=== PATIENT | female | born 1955 ===

== ENCOUNTER 2025-01-11 08:25 | Day surgery (SDC) | payer MEDICARE, BC ==
[2025-01-11] MEDS: Sodium Chloride 0.9% 10 ML Syringe FLUSH PRN (09:01)
== END 2025-01-11 09:51 | disposition home or self-care (01) ==
LOC: JP.SDS 08:25
PROVIDERS: ATTEND Ophthalmology
DX: H25.11 Age-related nuclear cataract, right eye (principal)
CPT/HCPCS: V2632

== ENCOUNTER 2025-02-08 08:16 | Day surgery (SDC) | payer MEDICARE, BC ==
[2025-02-08] MEDS: Sodium Chloride 0.9% 10 ML Syringe FLUSH PRN (08:29)
[2025-02-08] MEDS ORDERED: Midazolam 1 MG/ML 2 ML SDV ONE (08:38)
== END 2025-02-08 10:03 | disposition home or self-care (01) ==
LOC: JP.SDS 08:16
PROVIDERS: ATTEND Ophthalmology
DX: H25.12 Age-related nuclear cataract, left eye (principal); Z79.899 Other long term (current) drug therapy
CPT/HCPCS: J2250; V2632